=== PATIENT | male | born 1975 | race African-American/Black ===

== ENCOUNTER 2018-08-23 00:58 | Inpatient (IN) | payer SELFPAY ==
[~2018-08-23] VITALS: Ht 167.6 cm; Wt 74.8 kg
[2018-08-23] MEDS ORDERED: IV NORMAL SALINE 1000ML BAG 1,000 ML IV ONE (02:30)
[2018-08-23] MEDS ORDERED: KETOROLAC 15 MG/ML VIAL. IV ONE (02:30)
[2018-08-23 02:42] LABS: BASO # 0.1 x10^3/uL (0.0-0.2); BASO % 1 % (0-3); EOS # 0.1 x10^3/uL (0.0-0.7); EOS % 1 % (0-3); HEMATOCRIT 46.6 % (39.0-53.0); HEMOGLOBIN 15.7 g/dL (13.0-17.5); LYMPH % 12 % (24-48); MEAN CORPUSCULAR HEMOGLOBIN 32 pg (25-35); MEAN CORPUSCULAR HGB CONC 34 g/dL (31-37); MEAN CORPUSCULAR VOLUME 95 fL (79-100); MONO # 0.9 x10^3/uL (0.0-1.1); MONO % 5 % (0-9); NEUT # 14.6 x10^3uL (1.8-7.7); NEUT % 82 % (31-73); PLATELET COUNT 195 x10^3/uL (140-400); RED BLOOD COUNT 4.93 x10^6/uL (4.30-5.70); RED CELL DISTRIBUTION WIDTH 13.2 % (11.5-14.5); WHITE BLOOD COUNT 17.8 x10^3/uL (4.0-11.0)
[2018-08-23 02:54] LABS: CALCIUM 8.8 mg/dL (8.5-10.1); CREATININE 1.3 mg/dL (0.7-1.3); GFR 73.6; POTASSIUM 3.6 mmol/L (3.5-5.1)
[2018-08-23 03:00] LABS: ALBUMIN 3.7 g/dL (3.4-5.0); ALBUMIN/GLOBULIN RATIO 1.2 (1.0-1.7); TOTAL PROTEIN 6.7 g/dL (6.4-8.2)
[2018-08-23 03:18] LABS: BILIRUBIN,URINE SMALL (NEG); CLARITY,URINE CLEAR; COLOR,URINE AMBER; NITRITE,URINE NEGATIVE (NEG); PROTEIN,URINE NEGATIVE (NEG-TRACE)
[2018-08-23 03:25] LABS: BACTERIA,URINE 0 /HPF (0-FEW); RBC,URINE 0 /HPF (0-2); SQUAMOUS EPITHELIAL CELL,UR OCC /LPF; WBC,URINE OCC /HPF (0-4)
[2018-08-23] MEDS ORDERED: CONTRAST GIVEN. MC PRN (04:00)
[2018-08-23] MEDS ORDERED: IOHEXOL 300 MG/ML 100ML VIAL. IV ONE (04:00)
[2018-08-23 04:17] LABS: INFLUENZA A PATIENT NEGATIVE (NEGATIVE); INFLUENZA B PATIENT NEGATIVE (NEGATIVE)
--- NOTE | 2018-08-23 04:44 | RAD ---
INDICATION: abdo pain, wbc 17k, OMNI 300, 75ml COMPARISON: None. TECHNIQUE: Axial CT images obtained through the abdomen and pelvis without contrast. Limited assessment of solid organ structures and vasculature secondary to lack of intravenous contrast.. One or more of the following individualized dose reduction techniques were utilized for this examination: 1. Automated exposure control; 2. Adjustment of the mA and/or kV according to patient size; 3. Use of iterative reconstruction technique. FINDINGS: Fat-containing inguinal hernias. Abdominal aorta is not aneurysmal. No intrahepatic bile duct dilation. Gallbladder partially contracted. No peripancreatic fluid collection. Mildly prominent lymph node upper abdomen measuring up to about 8 x 16 mm in periportal region. Spleen unremarkable. 18 mm suspected cystic lesion left kidney. No left-sided hydronephrosis. Urinary bladder has minimal urine within it exam. No right-sided hydronephrosis. No definite periappendiceal inflammation. No dilated loops of bowel to suggest obstruction. IMPRESSION: 1. No evidence of bowel obstruction. 2. No hydronephrosis. 3. Low-density lesion left kidney. Could be cystic in nature but cannot exclude complex component on this exam. Electronically signed by: Rai Damon MD (08/23/2018 4:41 AM) [facility]
[2018-08-23] MEDS ORDERED: cefTRIAXone IV Push 1 GM VIAL. IVP ONE (05:00)
[2018-08-23] MEDS: IV NORMAL SALINE 1000ML BAG 1,000 ML IV SCH ×3 (05:17→20:23)
--- NOTE | 2018-08-23 05:26 | PHYS DOC ---
Past Medical History Past Medical History: No Pertinent History Past Surgical History: Other Additional Past Surgical Histo: RIGHT KNEE Alcohol Use: Heavy Drug Use: None Adult General Chief Complaint Chief Complaint: GENERALIZED BODY ACHES HPI HPI Patient is a 43 year old male presenting with bodyaches shaking chills sudden onset earlier today apparently was at work he walked to approximately 3 miles he normally does that and feels fine he went out to the local store to get a cigar and then he was just having a lot of body aches feeling weak and having a lot of chills. No definite fever he's been feeling well recently up until this point he just moved here from [place] he denies previous medical history he does not have a doctor. He denies any IV drug use occasional marijuana. He does have some mild upper abdominal discomfort. He has had nausea no vomiting he has muscle aches all over his body. Denies dysuria Review of Systems Review of Systems Constitutional: Denies fever or chills [] Eyes: Denies change in visual acuity, redness, or eye pain [] HENT: Denies nasal congestion or sore throat [] Respiratory: Denies cough or shortness of breath [] Cardiovascular: No additional information not addressed in HPI [] GI: Denies abdominal pain, nausea, vomiting, bloody stools or diarrhea [] : Denies dysuria or hematuria [] Musculoskeletal: Denies back pain or joint pain [] Integument: Denies rash or skin lesions [] Neurologic: Denies headache, focal weakness or sensory changes [] Endocrine: Denies polyuria or polydipsia [] All other systems were reviewed and found to be within normal limits, except as documented in this note. Current Medications Current Medications Current Medications Medications (Trade) Dose Ordered Sig/Aissatou Start Time Stop Time Status Last Admin Dose Admin Ceftriaxone Sodium (Rocephin) 1 gm 1X ONCE 08/23/18 05:00 08/23/18 05:01 DC 08/23/18 05:14 1 GM Info (CONTRAST GIVEN -- Rx MONITORING) 1 each PRN DAILY PRN 08/23/18 04:00 08/25/18 03:59 Iohexol (Omnipaque 300 Mg/ml) 75 ml 1X ONCE 08/23/18 04:00 08/23/18 04:02 DC 08/23/18 04:15 75 ML Ketorolac Tromethamine (Toradol 15mg Vial) 15 mg 1X ONCE 08/23/18 02:30 08/23/18 02:31 DC 08/23/18 02:38 15 MG Sodium Chloride 1,000 ml @ 125 mls/hr Q8H 08/23/18 05:00 08/24/18 04:59 08/23/18 05:17 125 MLS/HR Allergies Allergies Allergies Coded Allergies Type Severity Reaction Last Updated Verified shrimp Allergy Unknown 08/23/18 Yes Physical Exam Physical Exam Constitutional: Well developed, well nourished, no acute distress, non-toxic appearance. [] HENT: Normocephalic, atraumatic, bilateral external ears normal, oropharynx moist, no oral exudates, nose normal. [] no lad Eyes: PERRLA, EOMI, conjunctiva normal, no discharge. [] Neck: Normal range of motion, no tenderness, supple, no stridor. [] Cardiovascular:Heart rate regular rhythm, no murmur [] Lungs & Thorax: Bilateral breath sounds clear to auscultation [] Abdomen: Bowel sounds normal, soft, epigastric tenderness, no masses, no pulsatile masses. [] Skin: Warm, dry, no erythema, no rash. [] Extremities: tenderness of all muscles noted Neurologic: Alert and oriented X 3, normal motor function, normal sensory function, no focal deficits noted. [] Psychologic: Affect normal, judgement normal, mood normal. [] Current Patient Data Vital Signs Vital Signs Date Time Temp Pulse Resp B/P (MAP) Pulse Ox O2 Delivery O2 Flow Rate FiO2 08/23/18 04:46 87 08/23/18 03:24 88 140/73 (95) Room Air 08/23/18 01:08 98.6 18 98.6 Lab Values Laboratory Tests Test 08/23/18 02:30 08/23/18 03:05 08/23/18 03:40 White Blood Count 17.8 x10^3/uL (4.0-11.0) H Red Blood Count 4.93 x10^6/uL (4.30-5.70) Hemoglobin 15.7 g/dL (13.0-17.5) Hematocrit 46.6 % (39.0-53.0) Mean Corpuscular Volume 95 fL (79-100) Mean Corpuscular Hemoglobin 32 pg (25-35) Mean Corpuscular Hemoglobin Concent 34 g/dL (31-37) Red Cell Distribution Width 13.2 % (11.5-14.5) Platelet Count 195 x10^3/uL (140-400) Neutrophils (%) (Auto) 82 % (31-73) H Lymphocytes (%) (Auto) 12 % (24-48) L Monocytes (%) (Auto) 5 % (0-9) Eosinophils (%) (Auto) 1 % (0-3) Basophils (%) (Auto) 1 % (0-3) Neutrophils # (Auto) 14.6 x10^3uL (1.8-7.7) H Lymphocytes # (Auto) 2.0 x10^3/uL (1.0-4.8) Monocytes # (Auto) 0.9 x10^3/uL (0.0-1.1) Eosinophils # (Auto) 0.1 x10^3/uL (0.0-0.7) Basophils # (Auto) 0.1 x10^3/uL (0.0-0.2) Sodium Level 140 mmol/L (136-145) Potassium Level 3.6 mmol/L (3.5-5.1) Chloride Level 104 mmol/L (98-107) Carbon Dioxide Level 27 mmol/L (21-32) Anion Gap 9 (6-14) Blood Urea Nitrogen 15 mg/dL (8-26) Creatinine 1.3 mg/dL (0.7-1.3) Estimated GFR (Cockcroft-Gault) 73.6 BUN/Creatinine Ratio 12 (6-20) Glucose Level 110 mg/dL (70-99) H Calcium Level 8.8 mg/dL (8.5-10.1) Total Bilirubin 2.0 mg/dL (0.2-1.0) H Aspartate Amino Transferase (AST) 28 U/L (15-37) Alanine Aminotransferase (ALT) 42 U/L (16-63) Alkaline Phosphatase 55 U/L (46-116) Creatine Kinase 508 U/L (39-308) H Total Protein 6.7 g/dL (6.4-8.2) Albumin 3.7 g/dL (3.4-5.0) Albumin/Globulin Ratio 1.2 (1.0-1.7) Urine Collection Type Unknown Urine Color Mago Urine Clarity Clear Urine pH 6.0 Urine Specific [place] >=1.030 Urine Protein Negative mg/dL (NEG-TRACE) Urine Glucose (UA) Negative mg/dL (NEG) Urine Ketones (Stick) Trace mg/dL (NEG) Urine Blood Negative (NEG) Urine Nitrite Negative (NEG) Urine Bilirubin Small (NEG) Urine Urobilinogen Dipstick 1.0 mg/dL (0.2 mg/dL) Urine Leukocyte Esterase Negative (NEG) Urine RBC 0 /HPF (0-2) Urine WBC Occ /HPF (0-4) Urine Squamous Epithelial Cells Occ /LPF Urine Bacteria 0 /HPF (0-FEW) Urine Mucus Mod /LPF Influenza Type A Antigen Negative (NEGATIVE) Influenza Type B Antigen Negative (NEGATIVE) Laboratory Tests 08/23/18 02:30 Laboratory Tests 08/23/18 02:30 EKG EKG [] Radiology/Procedures Radiology/Procedures [] Impressions: cxr my read neg acute IMPRESSION: 1. No evidence of bowel obstruction. 2. No hydronephrosis. 3. Low-density lesion left kidney. Could be cystic in nature but cannot exclude complex component on this exam. Electronically signed by: Rai Damon MD (08/23/2018 4:41 AM) [facility] Course & Med Decision Making Course & Med Decision Making Pertinent Labs and Imaging studies reviewed. (See chart for details) []Leukocytosis 17.[address] scan abdomen and pelvis was negative acute I did tell him about the importance of follow-up for repeat imaging due to the renal cyst finding he understands. Strep test negative flu test negative chest x-ray read by me was negative acute urine negative at this point time patient has mild rhabdo An leukocytosis of unclear etiology so I did order blood cultures lactic acid as well as a dose of ceftriaxone I don't know anything about his medical history he has no follow-up he denies medical history in fact but with leukocytosis unexplained and a reported history of chills, think he warrants admission for hydration cultures etc admit cm Otero Disclaimer Branden Disclaimer This electronic medical record was generated, in whole or in part, using a voice recognition dictation system. Departure Departure Impression: Primary Impression: Leukocytosis Disposition: 09 ADMITTED INPATIENT Admitting Physician: Davie Waggoner Condition: STABLE Referrals: NO PCP (PCP) XAVIER BRADY MD Aug 23, 2018 05:26
--- NOTE | 2018-08-23 05:56 | NUR ---
The patient, SAMANTHA ARMANDO, 43 y/o, M admitted by ASHLEY WEN III, DO, was given written information regarding hospital policies, unit procedures and contact persons. Valuables were checked and left in patients room.
[2018-08-23 06:37] VITALS: BP 143/93
--- NOTE | 2018-08-23 08:24 | RAD ---
AP portable chest radiograph 08/23/2018 Clinical History: Fever. An AP erect portable digital radiograph of the chest was obtained. No previous studies are available for comparison. The cardiac silhouette is mildly enlarged. The thoracic aorta is tortuous. No acute infiltrate is seen. No pleural effusion or pneumothorax is noted. The osseous structures are grossly intact. IMPRESSION: No acute abnormality is seen. Electronically signed by: Gerard Mcginnis MD (08/23/2018 8:21 AM) [facility]
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
[2018-08-23] MEDS ORDERED: POTASSIUM CHLORIDE 20 MEQ TABLET.ER. PO ONE (09:00)
[2018-08-23] MEDS ORDERED: oxyCODONE/APAP 5/325 1 TAB TABLET PO PRN (09:15)
[2018-08-23 11:00] VITALS: BP 168/93
[2018-08-23 15:00] VITALS: BP 155/93
[2018-08-23] MEDS ORDERED: ACETAMINOPHEN 325 MG TABLET. PO PRN (17:00)
[2018-08-23] MEDS ORDERED: ACETAMINOPHEN 325 MG TABLET. PO ONE (17:01)
[2018-08-23 19:00] VITALS: BP 157/87
--- NOTE | 2018-08-23 22:16 | NUR ---
Pt was DC home with friends, ambulated self to door.
[2018-08-24] MEDS ORDERED: cefTRIAXone IV Push 1 GM VIAL. IVP SCH (06:00)
== END 2018-08-23 22:21 | disposition home or self-care (01) | DRG 866 ==
LOC: ER 00:58 → 5 NORTH 05:17
PROVIDERS: ADMIT Internal Medicine; ATTEND Internal Medicine
DX: B34.9 Viral infection, unspecified (principal); M79.10 Myalgia, unspecified site; D72.829 Elevated white blood cell count, unspecified; R53.1 Weakness; Z82.49 Family history of ischemic heart disease and other diseases of the circulatory system
CPT/HCPCS: 36415; 71045; 74177; 80053; 81001; 82550; 83605; 85025; 87040; 87070; 87804; 87880; 96361; 96374; 96375; J0696; J1885; J7030; Q9967; 99285-25

== ENCOUNTER 2018-09-01 19:45 | Emergency (ER) | payer SELFPAY ==
[~2018-09-01] VITALS: Ht 167.6 cm; Wt 86.2 kg
[2018-09-01 20:14] LABS: BASO # 0.1 x10^3/uL (0.0-0.2); BASO % 1 % (0-3); EOS # 0.1 x10^3/uL (0.0-0.7); EOS % 1 % (0-3); HEMOGLOBIN 14.5 g/dL (13.0-17.5); LYMPH # 2.5 x10^3/uL (1.0-4.8); LYMPH % 21 % (24-48); MEAN CORPUSCULAR HEMOGLOBIN 32 pg (25-35); MEAN CORPUSCULAR HGB CONC 34 g/dL (31-37); MEAN CORPUSCULAR VOLUME 94 fL (79-100); MONO % 9 % (0-9); NEUT # 8.1 x10^3uL (1.8-7.7); NEUT % 69 % (31-73); PLATELET COUNT 240 x10^3/uL (140-400); RED BLOOD COUNT 4.49 x10^6/uL (4.30-5.70); RED CELL DISTRIBUTION WIDTH 12.6 % (11.5-14.5); WHITE BLOOD COUNT 11.7 x10^3/uL (4.0-11.0)
[2018-09-01] MEDS ORDERED: IV NORMAL SALINE 1000ML BAG 1,000 ML IV ONE (20:15)
[2018-09-01] MEDS ORDERED: ONDANSETRON PF 4 MG/2 ML VIAL. IV ONE (20:15)
[2018-09-01] MEDS ORDERED: ACETAMINOPHEN 500 MG TABLET PO ONE (20:15)
[2018-09-01] MEDS ORDERED: MORPHINE SULFATE 4 MG/ML VIAL. IV ONE (20:15)
[2018-09-01 20:22] LABS: CALCIUM 9.2 mg/dL (8.5-10.1); CREATININE 1.2 mg/dL (0.7-1.3); GFR 80.7; POTASSIUM 3.8 mmol/L (3.5-5.1)
[2018-09-01 20:28] LABS: ALBUMIN 3.6 g/dL (3.4-5.0); ALBUMIN/GLOBULIN RATIO 1.1 (1.0-1.7); TOTAL BILIRUBIN 0.9 mg/dL (0.2-1.0); TOTAL PROTEIN 6.9 g/dL (6.4-8.2)
--- NOTE | 2018-09-01 20:42 | RAD ---
PORTABLE CHEST 1V History: ER PATIENT. FEVER, DIZZINESS, NEAR SYNCOPE. RECENT LEFT KNEE SURGERY 08/31 ARTHROSCOPIC REPAIR. PRIOR XRAY.. Comparison with August 23, 2018. The heart size is unchanged and within normal limits. No evidence of pneumothorax. No pleural effusion. No consolidated infiltrate. The regional skeleton appears intact. IMPRESSION: Stable exam, no consolidating infiltrate. Electronically signed by: Rasta Ruiz MD (09/01/2018 8:40 PM) [facility]
[2018-09-01 21:18] LABS: BILIRUBIN,URINE SMALL (NEG); CLARITY,URINE CLEAR; COLOR,URINE YELLOW; NITRITE,URINE NEGATIVE (NEG); PROTEIN,URINE NEGATIVE (NEG-TRACE)
[2018-09-01 21:22] LABS: BACTERIA,URINE 0 /HPF (0-FEW); RBC,URINE 0 /HPF (0-2); SQUAMOUS EPITHELIAL CELL,UR OCC /LPF; WBC,URINE OCC /HPF (0-4)
[2018-09-01 21:53] VITALS: BP 143/97
--- NOTE | 2018-09-01 21:58 | PHYS DOC ---
Past Medical History Past Medical History: No Pertinent History Past Surgical History: Other Additional Past Surgical Histo: RIGHT KNEE Alcohol Use: Occasionally Drug Use: Marijuana Adult General Chief Complaint Chief Complaint: POST-OP PROBLEM HPI HPI Patient is a 43 year old male who is presenting with postop day 1 status post ACL and meniscus repair at [facility] he got home he did not get his Percocet unclear reason pain was severe he got lightheaded when he walked up the stairs he did not pass out he did not hit his head no chest pain just felt weak he thinks it was from the severity of the pain. Diffuse pain across the whole leg no numbness, Review of Systems Review of Systems Constitutional: Denies fever or chills [] Eyes: Denies change in visual acuity, redness, or eye pain [] HENT: Denies nasal congestion or sore throat [] Respiratory: Denies cough or shortness of breath [] Cardiovascular: No additional information not addressed in HPI [] GI: Denies abdominal pain, , bloody stools or diarrhea [] All other systems were reviewed and found to be within normal limits, except as documented in this note. Current Medications Current Medications Current Medications Medications (Trade) Dose Ordered Sig/Aissatou Start Time Stop Time Status Last Admin Dose Admin Acetaminophen (Tylenol) 1,000 mg 1X ONCE 09/01/18 20:15 09/01/18 20:16 DC 09/01/18 20:21 1,000 MG Acetaminophen/ Hydrocodone Bitart (Lortab 5/325) 2 tab 1X ONCE 09/01/18 22:00 09/01/18 22:01 Morphine Sulfate (Morphine Sulfate) 6 mg 1X ONCE 09/01/18 20:15 09/01/18 20:16 DC 09/01/18 20:22 6 MG Ondansetron HCl (Zofran) 4 mg 1X ONCE 09/01/18 20:15 09/01/18 20:16 DC 09/01/18 20:21 4 MG Sodium Chloride 1,000 ml @ 1,000 mls/hr 1X ONCE 09/01/18 20:15 09/01/18 21:14 DC 09/01/18 20:22 1,000 MLS/HR Allergies Allergies Allergies Coded Allergies Type Severity Reaction Last Updated Verified shrimp Allergy Unknown 08/23/18 Yes Physical Exam Physical Exam Constitutional: Well developed, well nourished, mild distress tearful distress, non-toxic appearance. [] HENT: Normocephalic, atraumatic, bilateral external ears normal, oropharynx moist, no oral exudates, nose normal. [] Eyes: PERRLA, EOMI, conjunctiva normal, no discharge. [] Neck: Normal range of motion, no tenderness, supple, no stridor. [] Cardiovascular:Heart rate regular rhythm, no murmur [] Lungs & Thorax: Bilateral breath sounds clear to auscultation [] Abdomen: Bowel sounds normal, soft, no tenderness, no masses, no pulsatile masses. [] Skin: Warm, dry, no erythema, no rash. [] Sutures. In place incision is clean dry and intact Extremities: He braces in place there is a ice pack wrapped fairly tightly around the anterior portion of the knee appears to be pressing on the anterior sutures. This was loosened and the patient felt much better no obvious signs of erythema or cellulitis on the skin exam skin felt warm on the area effusion was noted I would expect this postoperatively. Neurologic: Alert and oriented X 3, normal motor function, normal sensory function, no focal deficits noted. [] Psychologic: Affect normal, judgement normal, mood normal. [] Current Patient Data Vital Signs Vital Signs Date Time Temp Pulse Resp B/P (MAP) Pulse Ox O2 Delivery O2 Flow Rate FiO2 09/01/18 21:23 90 16 133/79 (97) 96 Nasal Cannula 2.0 09/01/18 19:46 98.3 98.3 Lab Values Laboratory Tests Test 09/01/18 20:06 09/01/18 21:00 White Blood Count 11.7 x10^3/uL (4.0-11.0) H Red Blood Count 4.49 x10^6/uL (4.30-5.70) Hemoglobin 14.5 g/dL (13.0-17.5) Hematocrit 42.0 % (39.0-53.0) Mean Corpuscular Volume 94 fL (79-100) Mean Corpuscular Hemoglobin 32 pg (25-35) Mean Corpuscular Hemoglobin Concent 34 g/dL (31-37) Red Cell Distribution Width 12.6 % (11.5-14.5) Platelet Count 240 x10^3/uL (140-400) Neutrophils (%) (Auto) 69 % (31-73) Lymphocytes (%) (Auto) 21 % (24-48) L Monocytes (%) (Auto) 9 % (0-9) Eosinophils (%) (Auto) 1 % (0-3) Basophils (%) (Auto) 1 % (0-3) Neutrophils # (Auto) 8.1 x10^3uL (1.8-7.7) H Lymphocytes # (Auto) 2.5 x10^3/uL (1.0-4.8) Monocytes # (Auto) 1.0 x10^3/uL (0.0-1.1) Eosinophils # (Auto) 0.1 x10^3/uL (0.0-0.7) Basophils # (Auto) 0.1 x10^3/uL (0.0-0.2) Sodium Level 138 mmol/L (136-145) Potassium Level 3.8 mmol/L (3.5-5.1) Chloride Level 102 mmol/L (98-107) Carbon Dioxide Level 28 mmol/L (21-32) Anion Gap 8 (6-14) Blood Urea Nitrogen 17 mg/dL (8-26) Creatinine 1.2 mg/dL (0.7-1.3) Estimated GFR (Cockcroft-Gault) 80.7 BUN/Creatinine Ratio 14 (6-20) Glucose Level 115 mg/dL (70-99) H Calcium Level 9.2 mg/dL (8.5-10.1) Total Bilirubin 0.9 mg/dL (0.2-1.0) Aspartate Amino Transferase (AST) 24 U/L (15-37) Alanine Aminotransferase (ALT) 33 U/L (16-63) Alkaline Phosphatase 54 U/L (46-116) Total Protein 6.9 g/dL (6.4-8.2) Albumin 3.6 g/dL (3.4-5.0) Albumin/Globulin Ratio 1.1 (1.0-1.7) Urine Color Yellow Urine Clarity Clear Urine pH 6.0 Urine Specific Plessis >=1.030 Urine Protein Negative mg/dL (NEG-TRACE) Urine Glucose (UA) Negative mg/dL (NEG) Urine Ketones (Stick) Trace mg/dL (NEG) Urine Blood Negative (NEG) Urine Nitrite Negative (NEG) Urine Bilirubin Small (NEG) Urine Urobilinogen Dipstick 1.0 mg/dL (0.2 mg/dL) Urine Leukocyte Esterase Negative (NEG) Urine RBC 0 /HPF (0-2) Urine WBC Occ /HPF (0-4) Urine Squamous Epithelial Cells Occ /LPF Urine Bacteria 0 /HPF (0-FEW) Urine Mucus Mod /LPF Laboratory Tests 09/01/18 20:06 Laboratory Tests 09/01/18 20:06 EKG EKG []EKG shows a sinus tachycardia rate of 109 incomplete right bundle branch block pattern QTC 424 no acute STEMI was identified. Radiology/Procedures Radiology/Procedures [] Impressions: Chest x-ray negative acute Course & Med Decision Making Course & Med Decision Making Pertinent Labs and Imaging studies reviewed. (See chart for details) []43-year-old male with severe pain following a ACL and meniscus repair yesterday at outside hospital. The site looks essentially expected postoperatively there was an ice pack that was wrapped fairly tightly this was loose and he felt better we gave pain control pain was improving. Labs are stable borderline white count is better than previous no fever I think that primary issue is that he has not filled his Percocet I encouraged him to do so. He did briefly request admission to the hospital for "better care", I did let him know he needed to take his oral Percocet he could be having knee pain for several days or couple weeks if not longer postoperatively and he should be able to ambulate well with crutches given his age and underlying strength. he is agreeable to this we also talked about that admitting him to the hospital would predispose him to unnecessary risk of serious infections given his recent postoperative state. Dragon Disclaimer Dragon Disclaimer This electronic medical record was generated, in whole or in part, using a voice recognition dictation system. Departure Departure Impression: Primary Impression: Knee pain Disposition: HOME, SELF-CARE Condition: STABLE Patient Instructions: Knee Pain, [id number] XAVIER BRADY MD September 01, 2018 21:58
[2018-09-01] MEDS ORDERED: HYDROcodone/APAP 5/325MG 1 TAB TABLET PO ONE (22:00)
--- NOTE | 2018-09-02 06:56 | EKG ---
[facility] [address] [place] [address] Test Date: 2018-09-01 Test Time: 20:13:13 Pat Name: SAMANTHA ARMANDO Department: Room: Gender: M Medical I D Sales: : 1975 Requested By: XAVIER BRADY Order Number: [id number] Reading MD: Rah Campuzano Measurements Intervals Douglas Rate: 109 P: 24 WV: 130 QRS: 18 QRSD: 92 T: 37 QT: 314 QTc: 424 Interpretive Statements SINUS TACHYCARDIA LEFT ATRIAL ABNORMALITY S1,S2,S3 PATTERN INCOMPLETE RIGHT BUNDLE BRANCH BLOCK NONSPECIFIC ST-T WAVE CHANGES. Electronically Signed On 09-03-2018 10:01:58 CDT by Rah Campuzano
== END 2018-09-01 22:10 | disposition home or self-care (01) ==
LOC: ER 19:45
DX: G89.18 Other acute postprocedural pain (principal); M25.562 Pain in left knee; R42 Dizziness and giddiness; Z91.013 Allergy to seafood
CPT/HCPCS: 36415; 71045; 80053; 81001; 85025; 93005; 96361; 96374; 96375; 99285; J2270; J2405; J7030

== ENCOUNTER 2020-08-28 04:08 | Emergency (ER) | payer SELFPAY ==
[~2020-08-28] VITALS: Ht 167.6 cm; Wt 94.0 kg
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
--- NOTE | 2020-08-28 05:31 | RAD ---
Single view chest dated 08/28/2020: Comparison made to 09/01/2018. Clinical Indication: Shortness of breath. Findings: Single upright portable exam of the chest was performed. Heart size and mediastinal contours are with in normal limits given technique. The lungs are clear without evidence of focal consolidation. Vascul ar interstitium is within normal limits. Impression:: Negative portable chest. Electronically signed by: Rasta Bailey MD (08/28/2020 5:29 AM) CHRISTOPHER
--- NOTE | 2020-08-28 05:55 | RAD ---
Three-view left knee dated 08/28/2020. No comparison available. CLINICAL INDICATION: Pain. FINDINGS: 3 views of left knee show normal bony alignment. No displaced fracture. Evidence of prior ACL repair. No apparent joint effusion or loose body. IMPRESSION: 1. No acute radiographic abnormality. Electronically signed by: Rasta Bailey MD (08/28/2020 5:52 AM) CHRISTOPHER
[2020-08-28 06:50] VITALS: BP 173/88
== END 2020-08-28 06:24 | disposition home or self-care (01) ==
LOC: ER 04:08
DX: M25.562 Pain in left knee (principal); R06.02 Shortness of breath; R44.3 Hallucinations, unspecified; F17.200 Nicotine dependence, unspecified, uncomplicated; F12.90 Cannabis use, unspecified, uncomplicated; Z98.890 Other specified postprocedural states; Z91.013 Allergy to seafood
CPT/HCPCS: 71045; 73562; 99285

== ENCOUNTER 2020-08-28 06:27 | Emergency (ER) | payer SELFPAY ==
[~2020-08-28] VITALS: Ht 167.6 cm; Wt 93.2 kg
[2020-08-28] MEDS ORDERED: amLODIPine BESYLATE 5 MG TABLET PO ONE (07:00)
[2020-08-28 07:25] LABS: HEMATOCRIT 48.5 % (39.0-53.0); HEMOGLOBIN 16.7 g/dL (13.0-17.5); RED BLOOD COUNT 5.09 x10^6/uL (4.30-5.70); WHITE BLOOD COUNT 8.9 x10^3/uL (4.0-11.0)
[2020-08-28 07:32] LABS: CALCIUM 8.5 mg/dL (8.5-10.1); CREATININE 1.2 mg/dL (0.7-1.3); POTASSIUM 3.8 mmol/L (3.5-5.1)
--- NOTE | 2020-08-28 07:41 | PHYS DOC ---
Past Medical History Past Medical History: No Pertinent History, Other Past Surgical History: Other Additional Past Surgical Histo: RIGHT KNEE,LEFT KNEE ACL/PCL/MINISCUS 2019 Smoking Status: Current Every Day Smoker Alcohol Use: Heavy Drug Use: Marijuana Adult General Chief Complaint Chief Complaint: OTHER COMPLAINTS [facility] HPI Patient is a 45 year old male with history of obstructive sleep apnea returns emergency department with concern for shortness of breath. Patient was discharged from the emergency department admitted ago but returns stating that he is concerned about sleep apnea feels that he needs oxygen. Patient states that her last 7 days has been having difficulty sleeping because he has obstructive sleep apnea and is requesting treatment for this. States that he recently moved from [place] and feels that "the area is different here and it is making me feel like I cannot get a full breath." States that "I do not want to have to wait for primary care doctor I just want everything done now because that is not how I live my life." Currently denies any chest pain, nausea, vomiting, dizziness, wheezing, cough, recent illness or sick contacts , Review of Systems Review of Systems Constitutional: Denies fever or chills [] Eyes: Denies change in visual acuity, redness, or eye pain [] HENT: Denies nasal congestion or sore throat [] Respiratory: Denies cough or shortness of breath [] Cardiovascular: No additional information not addressed in HPI [] GI: Denies abdominal pain, nausea, vomiting, bloody stools or diarrhea [] : Denies dysuria or hematuria [] Musculoskeletal: Denies back pain or joint pain [] Integument: Denies rash or skin lesions [] Neurologic: Denies headache, focal weakness or sensory changes [] Endocrine: Denies polyuria or polydipsia [] All other systems were reviewed and found to be within normal limits, except as documented in this note. Current Medications Current Medications Current Medications Medications (Trade) Dose Ordered Sig/Aissatou Start Time Stop Time Status Last Admin Dose Admin Amlodipine Besylate (Norvasc) 5 mg 1X ONCE 08/28/20 07:00 08/28/20 07:03 DC 08/28/20 07:20 5 MG Allergies Allergies Allergies Coded Allergies Type Severity Reaction Last Updated Verified shrimp Allergy Unknown 08/23/18 Yes Physical Exam Physical Exam Constitutional: Well developed, well nourished, no acute distress, non-toxic appearance. [] HENT: Normocephalic, atraumatic, bilateral external ears normal, oropharynx moist, no oral exudates, nose normal. [] Eyes: PERRLA, EOMI, conjunctiva normal, no discharge. [] Neck: Normal range of motion, no tenderness, supple, no stridor. [] Cardiovascular:Heart rate regular rhythm, no murmur [] Lungs & Thorax: Bilateral breath sounds clear to auscultation [] Abdomen: Bowel sounds normal, soft, no tenderness, no masses, no pulsatile masses. [] Skin: Warm, dry, no erythema, no rash. [] Back: No tenderness, no CVA tenderness. [] Extremities: No tenderness, no cyanosis, no clubbing, ROM intact, no edema. [] Neurologic: Alert and oriented X 3, normal motor function, normal sensory function, no focal deficits noted. [] Psychologic: Affect normal, judgement normal, mood normal. [] Current Patient Data Vital Signs Vital Signs Date Time Temp Pulse Resp B/P (MAP) Pulse Ox O2 Delivery O2 Flow Rate FiO2 08/28/20 07:52 73 14 195/85 (121) 97 Nasal Cannula 2.0 08/28/20 06:30 98.6 98.6 Lab Values Laboratory Tests Test 08/28/20 07:10 White Blood Count 8.9 x10^3/uL (4.0-11.0) Red Blood Count 5.09 x10^6/uL (4.30-5.70) Hemoglobin 16.7 g/dL (13.0-17.5) Hematocrit 48.5 % (39.0-53.0) Mean Corpuscular Volume 95 fL (79-100) Mean Corpuscular Hemoglobin 33 pg (25-35) Mean Corpuscular Hemoglobin Concent 34 g/dL (31-37) Red Cell Distribution Width 14.0 % (11.5-14.5) Platelet Count 216 x10^3/uL (140-400) Sodium Level 142 mmol/L (136-145) Potassium Level 3.8 mmol/L (3.5-5.1) Chloride Level 106 mmol/L (98-107) Carbon Dioxide Level 25 mmol/L (21-32) Anion Gap 11 (6-14) Blood Urea Nitrogen 18 mg/dL (8-26) Creatinine 1.2 mg/dL (0.7-1.3) Estimated GFR (Cockcroft-Gault) 80.0 Glucose Level 117 mg/dL (70-99) H Calcium Level 8.5 mg/dL (8.5-10.1) Laboratory Tests 08/28/20 07:10 Laboratory Tests 08/28/20 07:10 EKG EKG [] Radiology/Procedures Radiology/Procedures [] Course & Med Decision Making Course & Med Decision Making Pertinent Labs and Imaging studies reviewed. (See chart for details) 45-year-old male presented to emergency department concern for obstructive sleep apnea. Patient does have some mild hypertension here obtain labs to make sure there is no secondary sequela from this, agreed to give the patient a short of oxygen to let him sleep and then will discharge home with primary care follow- up. Patient saturating normal when awake and ambulating without difficulty. No significant findings on blood work. Discussed the patient he agrees to follow- up with primary care physician at home for his obstructive sleep apnea Dragon Disclaimer Dragon Disclaimer This electronic medical record was generated, in whole or in part, using a voice recognition dictation system. Departure Departure Impression: Primary Impression: Obstructive sleep apnea Disposition: HOME / SELF CARE / HOMELESS Condition: GOOD Referrals: NO PCP (PCP) CHARLENE CALLAWAY MD Patient Instructions: Sleep Apnea Additional Instructions: EMERGENCY DEPARTMENT GENERAL DISCHARGE INSTRUCTIONS Thank you for coming to [facility] Emergency Department (ED) today and trusting us with you care. We trust that you had a positive experience in our Emergency Department. If you wish to speak to the department management, you may call the Director at [phone]. YOUR FOLLOW UP INSTRUCTIONS ARE FOLLOWS: 1. Do you have a private Doctor? If you do not have a private doctor, please ask for a resource list of physicians or clinics that may be able to assist you with follow up care. 2. The Emergency Physicain has interpreted your x-rays. The X-Ray specialist w ill also review them. If there is a change in the findings, you will be notified in 48 hours when at all possible. 3. A lab test or culture has been done, your results will be reviewed and you will be notified if you need a change in treatment. ADDITIONAL INSTRUCTIONS AND INFORMATION: 1. Your care today has been supervised by a physician who is specially trained in emergency care. Many problems require more than one evaluation for a complete diagnosis and treatment. We recommend that you schedule your follow up appointment as recommended to ensure complete treatment of you illness or injury. If you are unable to obtain follow up care and continue to have a problem, or if your condition worsens, we recommend that you return to the ED. 2. We are not able to safely determine your condition over the phone nor are we able to give sound medical advice over the phone. For these safety reasons, if you call for medical advice we will ask you to come to the ED for further evaluation. 3. If you have any questions regarding these discharge instructions please call the ED at [phone]. SAFETY INFORMATION: In the interest of safety, wellness, and injury prevention; we encourage you to wear your sealbelt, if you smoke; quite smoking, and we encourage family to use a protective helmet for bicycling and other sporting events that present an increased risk for head injury. IF YOUR SYMPTOMS WORSEN OR NEW SYMPTOMS DEVELOP, OR YOU HAVE CONCERNS ABOUT YOUR CONDITION; OR IF YOUR CONDITION WORSENS WHILE YOU ARE WAITING FOR YOUR FOLLOW UP APPOINTMENT; EITHER CONTACT YOUR PRIMARY CARE DOCTOR, THE PHYSICIAN WHOSE NAME AND NUMBER YOU WERE GIVEN, OR RETURN TO THE ED IMMEDIATELY. YOBANY SHI MD Aug 28, 2020 07:41
[2020-08-28 08:30] VITALS: BP 168/79
== END 2020-08-28 09:35 | disposition home or self-care (01) ==
LOC: ER 06:27
DX: G47.33 Obstructive sleep apnea (adult) (pediatric) (principal); G47.30 Sleep apnea, unspecified; R06.02 Shortness of breath; F17.200 Nicotine dependence, unspecified, uncomplicated; F12.90 Cannabis use, unspecified, uncomplicated; F10.10 Alcohol abuse, uncomplicated; Z98.890 Other specified postprocedural states
CPT/HCPCS: 36415; 80048; 85027; 99285